=== PATIENT | male | born 1990 | race Caucasian/White ===

== ENCOUNTER 2020-05-11 21:12 | Emergency (ER) | payer OTHER, SELFPAY ==
[2020-05-11 21:20] VITALS: BP 101/51; PULSE 81; RESP 19; TEMP 37; O2SAT 100; BMI 28.5
--- NOTE | 2020-05-11 22:03 | DI.RAD.S_ITS ---
PROCEDURE: XR HIP W PEL IF DONE LT 2V INDICATIONS: pain after fall TECHNIQUE: AP pelvis with lateral view(s) of the left hip(s). COMPARISON: None. FINDINGS: Bones: No fractures or dislocations. Pelvic ring appears intact. No suspicious bony lesions. Soft tissues: The visualized bowel gas pattern is normal. No suspicious soft tissue calcifications. IMPRESSION: No evidence acute bony abnormality of the pelvis and left hip. If clinical suspicion and/or symptoms persist, further assessment with repeat plain films, or advanced imaging (e.g., CT, MRI, or bone scan) may be helpful for further assessment. Dictated by: Alejandro Dias M.D. on 05/12/2020 at 8:13 Approved by: Alejandro Dias M.D. on 05/12/2020 at 8:14
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
[2020-05-11 22:30] VITALS: BP 106/66; PULSE 70; RESP 17; O2SAT 100
--- NOTE | 2020-05-11 22:45 | DI.CT.S_ITS ---
PROCEDURE: CT PEL WO CON INDICATIONS: Left SI jont pain after fall TECHNIQUE: Noncontrast 3 mm axial sections acquired through the bony pelvis, with coronal and sagittal reformatting. COMPARISON: None. FINDINGS: Image quality: Excellent. Bones: No acute fracture or dislocation. No significant degenerative change. Soft tissues: Pelvic contents are unremarkable. IMPRESSION: No evidence of significant sequela of acute trauma. Unremarkable noncontrast CT pelvis. Comment: Final report is concordant with preliminary interpretation provided by [facility]. Dictated by: Alejandro Dias M.D. on 05/12/2020 at 7:35 Approved by: Alejandro Dias M.D. on 05/12/2020 at 7:36
[2020-05-11 23:21] VITALS: BP 113/59; PULSE 79; RESP 18; O2SAT 100
[2020-05-12] MEDS: KETOROLAC 60 MG/2 ML VIAL 30 MG IV (00:07)
[2020-05-12] MEDS: ONDANSETRON 4 MG/2 ML INJ IV (00:08)
[2020-05-12 00:24] VITALS: BP 166/64; PULSE 68; RESP 17; O2SAT 99
== END 2020-05-12 00:26 | disposition home or self-care (01) ==
PROVIDERS: Emergency Provider Emergency Medicine
DX: S70.02XA Contusion of left hip, initial encounter (principal); S20.412A Abrasion of left back wall of thorax, initial encounter; V29.9XXA Motorcycle rider (driver) (passenger) injured in unspecified traffic accident, initial encounter
CPT/HCPCS: 72192; 73502; 96374; 96375; 99284; J1885; J2405